=== PATIENT | male | born 1935 ===

== ENCOUNTER → 2017-02-14 | Day surgery (SDC) | payer MEDICARE, BC ==
[~2017-02-14] VITALS: Ht 175.3 cm; Wt 87.7 kg
[~2017-02-14] MED LIST: ATIVAN 0.5MG0.5 MG PO; CALCIUM CITRATE PO; CLARITIN10 MG PO; DECADRON4 MG PO; FLONASE 50 MCG/16 GM NOSE; K-TAB ER10 MEQ PO; KRILL OIL 1,001 EACH PO; LASIX40 MG PO; OCUVITE EYE +1 EACH PO; OCUVITE SOFTGE1 EACH PO; OMEGA-3 KRILL1 EAC1 PO; TAB-A-VITE1 EACH PO; THERA-VITE W/ B1 TAB PO; TYLENOL EXTRA500 MG PO; ZANTAC300 MG PO
--- NOTE | ~2017-02-14 | HP ---
PATIENT'S NAME: IMMANUEL ZEPEDA [facility] AGE: 81 Y [address] 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 An ultrasound study of the bladder was done and this showed a mass in the pelvis, which appeared to be pushing into the bladder wall; an extrinsic mass rather than a bladder mass. 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 His PSAs have all remained undetectable. He had previously been voiding without difficulty with a good stream. He has no previous history of urinary tract disease or infections. PAST MEDICAL HISTORY: Illnesses: Hypertension. Operations: Tonsillectomy, appendectomy, cholecystectomy. ALLERGIES: NONE KNOWN. PHYSICAL EXAMINATION: GENERAL: Well-developed, well-nourished male. CHEST: Clear. HEART: Normal sinus rhythm. ABDOMEN: Soft with no palpable masses. : Normal penis. Testicles are normal. Prostatic fossa is empty. RECTAL: Negative. IMPRESSION: Pelvic mass, etiology undetermined. PLAN: Cystoscopy, possible biopsy, and then CT scan. PATIENT'S NAME: IMMANUEL ZEPEDA [facility] AGE: 81 Y [address] ROOM: [place] [address] LOCATION: [facility] [place] ADMIT DATE: 02/14/2017 History & Physical DISCHARGE DATE: FAMILY PHYSICIAN: Zac Nelson MD ATTENDING PHYSICIAN: Yasmin Ac YASMIN AC MD EKL/modl /[id number] D: 235 T: 441 HISTORY & PHYSICAL
--- NOTE | ~2017-02-14 | OR ---
PATIENT'S NAME: IMMANUEL ZEPEDA [facility] AGE: 81 Y [address] ROOM: [place] [address] LOCATION: [facility] [place] ADMIT DATE: 02/14/2017 OR/Procedure Report DISCHARGE DATE: FAMILY PHYSICIAN: Zac Nelson MD ATTENDING PHYSICIAN: Yasmin Ac SURGEON: Yasmin Ac MD CENTRAL SERVICES TECH: DATE OF PROCEDURE: 02/14/2017 PREOPERATIVE DIAGNOSIS: Pelvic mass. POSTOPERATIVE DIAGNOSIS: Extrinsic bladder mass with displacement of lateral wall of the bladder. PROCEDURE PERFORMED: Cystoscopy. DESCRIPTION OF PROCEDURE: After adequate anesthesia, was prepped and draped. Cystoscope was passed. The anterior urethra was normal. External sphincter was normal. The prostate was absent, had a previous prostatectomy. Examination of the bladder revealed a normal trigone. The bladder mucosa was entirely normal. On the right lateral wall, there was a mass pushing into the bladder but the mucosa was entirely normal with no evidence of any intrinsic bladder lesion due to all extrinsic pushing into the bladder. Rectal exam revealed the prostatic fossa to be empty. I could not feel any pelvic masses on bimanual pelvic examination. He was then accompanied to recovery area. PLAN: He is scheduled for a CT scan and then probable biopsy. YASMIN AC MD EKL/modl /[id number] d: 02/14/17 0742 t: 02/15/17 0444, OPERATIVE SUMMARY
[2017-02-14 06:39] LABS: BASOPHIL # 0.1 K/uL (0.0-0.2); BASOPHIL % 0.6 %; EOSINOPHIL # 0.1 K/uL (0.0-0.5); HEMATOCRIT 43.8 % (37.0-53.0); HEMOGLOBIN 14.9 g/dL (11.0-16.0); IMMATURE GRANULOCYTE # 0.1 K/uL (0.0-0.3); IMMATURE GRANULOCYTE % 1.5 %; LYMPHOCYTE # 2.1 K/uL (0.8-4.0); LYMPHOCYTE % 24.1 %; MCH 31.5 pg (27.0-34.0); MCV 92.6 fl (83.0-98.0); MONOCYTE # 0.8 K/uL (0.0-1.0); MONOCYTE % 8.6 %; MPV 10.8 fl (9.4-12.4); NEUTROPHIL # (ANC) 5.6 K/uL (1.4-9.0); NEUTROPHIL % 64.2 %; NRBC % 0 /100WBC (0-0.00); PLATELET COUNT 148 K/uL (150-450); RBC 4.73 M/uL (3.50-5.50); WBC 8.8 K/uL (4.0-11.0)
[2017-02-14 06:54] LABS: ALBUMIN 3.2 gm/dL (3.5-5.0); ALK PHOS 84 IU/L (33-138); ALT 47 IU/L (12-78); ANION GAP 9.8 (10.0-19.0); AST 26 IU/L (10-40); BLOOD UREA NITROGEN 25 mg/dL (6-24); CHLORIDE 108 mMol/L (96-110); CO2 29 mMol/L (22-32); CREATININE 0.7 mg/dL (0.6-1.3); ESTIMATED GFR (MDRD EQUATION) > 60; POTASSIUM 3.8 mMol/L (3.7-5.1); SODIUM 143 mMol/L (135-145); TOTAL BILIRUBIN 0.6 mg/dL (0.0-1.5); TOTAL PROTEIN 6.2 g/dL (6.0-8.4)
[2017-02-14 07:51] LABS: COLOR URINE STRAW (YELLOW); TURBIDITY URINE CLEAR (CLEAR)
[2017-02-14 07:52] LABS: BILIRUBIN URINE NEGATIVE (NEGATIVE); GLUCOSE URINE NEGATIVE (NEGATIVE); KETONE URINE NEGATIVE (NEGATIVE); LEUKOCYTES URINE NEGATIVE /UL (NEGATIVE); NITRITE URINE NEGATIVE (NEGATIVE); PROTEIN URINE NEGATIVE (NEGATIVE); UROBILINOGEN URINE NORMAL (NORMAL)
[2017-02-14 07:53] LABS: BLOOD URINE NEGATIVE /UL (NEGATIVE)
== END | disposition disaster alternative care site (69) ==
LOC: GPOC 02-13 13:00 → GSDC 05:43
PROVIDERS: Urology
PROC: 0TJB8ZZ Inspection of Bladder, Via Natural or Artificial Opening Endoscopic (ICD-10-PCS; principal; 2017-02-14)
DX: N32.89 Other specified disorders of bladder (principal); I10 Essential (primary) hypertension; Z90.49 Acquired absence of other specified parts of digestive tract; Z90.79 Acquired absence of other genital organ(s); Z98.890 Other specified postprocedural states
CPT/HCPCS: J2001; J7030; Q9967

== ENCOUNTER → 2017-03-19 | Outpatient (CLI) | payer MEDICARE, BC ==
[~2017-03-19] VITALS: Ht 177.8 cm; Wt 87.0 kg
== END | disposition disaster alternative care site (69) ==
LOC: GPOC 08:28 → EDSTATUS 03-20 14:00
DX: Z01.818 Encounter for other preprocedural examination (principal); R94.31 Abnormal electrocardiogram [ECG] [EKG]

== ENCOUNTER → 2017-03-19 | Outpatient (CLI) | payer MEDICARE, BC ==
--- NOTE | ~2017-03-19 | ECHO ---
Transthoracic Echocardiography Report (TTE) Demographics Patient Name IMMANUEL ZEPEDA Date of Study 03/19/2017 Patient Number [id number] Visit Number [id number] Date of 1935 Room Number Accession Number [id number] Gender Male Age 82 year(s) Referring Carol Chang MD Eyeglass Frames Inspector Rasheed Sandoval RVT, Physician Osorio Brown MD Physician Interpreting Carol Chang MD Invoicing Machine Operator Physician Supervising Ordering Physician Carol Chang MD, MD/MLP Nurse Stress Cutter Inspector Conclusions Contractility Score Summary Normal Left Ventricular contractility was noted. Summary The estimated left ventricular ejection fraction is 60%. Moderate concentric left ventricular hypertrophy with a sigmoid septum measuring 2.31 cm. Diastolic assessment reveals Grade I diastolic dysfunction. Mild mid cavity obliteration due to the severity of the sigmoid septum and left ventricular hypertrophy. The left atrium is severely dilated. Mild mitral regurgitation by color Doppler. Mild mitral annular calcification. Borderline aortic stenosis with a peak velocity 2.41 m/s and a mean gradient 19 mmHg. There is moderate eccentric aortic regurgitation by color Doppler. There is a mild LVOT gradient that increases with valsalva. Procedure Type of Study TTE procedure:2D Echocardiogram. Procedure Date Date: 03/19/2017 Start: 08:06 AM Study Location: Echo Lab Technical Quality: Adequate visualization Indications:Pre surgical clearance and Shortness of breath. Appropriate Use Criteria: 8 Patient Status: Routine Rhythm: NSR HR: 72 bpm M-Mode/2D Measurements LV Diastolic Dimension: 3.87 cm LV Systolic Dimension: 2.3 cm LV Septum Diastolic: 2.2 cm LV PW Diastolic: 1.65 cm AO Root Dimension: 2.7 cm Cardiac Output: 8.23 l/min LA Dimension: 6.4 cm EF Estimated: 60 % LVOT: 2.2 cm LVOT VTI: 30.1 cm RV Base: 3.58 cm LV Stroke volume: 114.36 ml RV Length: 8.07 cm TAPSE: 2.64 cm TDI-S': 16 cm/s Doppler Measurements AV Peak Velocity: 2.41 m/s MV Peak E-Wave: 0.95 m/s AV Peak Gradient: 23.23 mmHg MV Peak A-Wave: 1.2 m/s AV Mean Gradient: 19 mmHg MV E/A Ratio: 0.8 LVOT Peak Velocity: 1.25 m/s MV P1/2t: 68 msec TR Gradient:19.89 mmHg PV Peak Velocity: 0.95 m/s Estimated RAP:5 mmHg PV Peak Gradient: 3.62 mmHg Estimated RVSP: 25 mmHg Estimated PASP: 24.89 mmHg E' Septal Velocity: 0.05 m/s A' Septal Velocity: 0.05 m/s E' Lateral Velocity: 0.05 m/s A' Lateral Velocity: 0.07 m/s Findings Left Ventricle Moderate concentric left ventricular hypertrophy with a sigmoid septum measuring 2.31 cm. Diastolic assessment reveals Grade I diastolic dysfunction. Mild mid cavity obliteration due to the severity of the sigmoid septum and left ventricular hypertrophy. Right Ventricle Mildly dilated right ventricle. Left Atrium The left atrium is severely dilated. Right Atrium Normal right atrial size. IVC measures 1.80 cm with inspiratory collapse. Mitral Valve Mild-moderate mitral regurgitation by color Doppler. Mild mitral annular calcification. Aortic Valve Mild to moderate aortic stenosis with a peak velocity 2.41 m/s and a mean gradient 19 mmHg. There is moderate eccentric aortic regurgitation by color Doppler. There is a mild LVOT gradient that increases with valsalva. Tricuspid Valve Normal tricuspid valve structure and function. Trivial tricuspid regurgitation by color Doppler. Pulmonic Valve Normal pulmonic valve structure and function. Pericardial Effusion Trivial posterior pericardial effusion. Miscellaneous Visualized portions of the aortic root and ascending aorta appear normal in size. Pleural Effusion No evidence of pleural effusion. Contractility Score LV regional wall motion:(0-Non visualized 1-Normal 2-Hypokinesis 3-Akinesis 4-Dyskinesis 5-Aneurysm) Signature dtt: Bernardo Medina (cardio) dtd: 03/19/17 0806 Physician Self Edit
== END | disposition disaster alternative care site (69) ==
LOC: GCAR 07:46
DX: Z01.818 Encounter for other preprocedural examination (principal); I51.7 Cardiomegaly; I25.3 Aneurysm of heart; I34.0 Nonrheumatic mitral (valve) insufficiency; I35.2 Nonrheumatic aortic (valve) stenosis with insufficiency; R06.02 Shortness of breath

== ENCOUNTER 2017-03-20 06:56 | Emergency (ER) | payer MEDICARE, BC ==
--- NOTE | ~2017-03-20 | ER ---
PATIENT'S NAME: IMMANUEL ZEPEDA [facility] AGE: 82 Y [address] ROOM: [place] [id number] LOCATION: [facility] ADMIT DATE: 03/20/2017 ER/Outpatient Report DISCHARGE DATE: 03/20/2017 FAMILY PHYSICIAN: Zac Nelson MD ATTENDING PHYSICIAN: Veronica Shi TIME OF ARRIVAL: 06:56. TIME SEEN: 06:56. IDENTIFICATION: An 82-year-old male. CHIEF COMPLAINT: Weakness. HISTORY OF PRESENT ILLNESS: The patient is an 82-year-old male, who was scheduled for a stress test today with Dr. Medina. He and his are from [place], [place], and they were staying at the [facility]. The patient has had some balance issues of late, and had a fall about 3 hours ago with no injury. He was lift assisted by paramedics back to his chair. This morning, his said with his weakness, she was uncomfortable having him use his walker to get out to the car, and they really just wanted assistance in a wheelchair right over to the hospital. There was some question of whether or not he was confused. He is not confused. He has no complaints. They really do just want to go for the stress testing. I reviewed his history. ALLERGIES: NO ALLERGIES. CURRENT MEDICATIONS: As listed on his home medication list. MEDICAL PROBLEMS: History of prostate cancer, now with a pelvic mass, scheduled for surgery with Dr. Ac, but getting the stress test today for some exertional dyspnea. He has mild aortic stenosis and a history of schwannoma, which has been followed by a neurosurgeon in [place]. He has balance issues secondary to that schwannoma. 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 He is . PATIENT'S NAME: IMMANUEL ZEPEDA [facility] AGE: 82 Y [address] ROOM: [place], [place] [address] LOCATION: [facility] ADMIT DATE: 03/20/2017 ER/Outpatient Report DISCHARGE DATE: 03/20/2017 FAMILY PHYSICIAN: Zac Nelson MD ATTENDING PHYSICIAN: Veronica Shi He is a former smoker. Alcohol, occasional. REVIEW OF SYSTEMS: All systems were reviewed. He really has no complaints, and they really have no interest in being seen here in the Emergency Room. PHYSICAL EXAMINATION: VITAL SIGNS: Per the Nursing record. LUNGS: Clear to auscultation. HEART: Regular rate and rhythm. ABDOMEN: Soft. SKIN: Angels, warm, and dry. NEUROLOGICAL: The patient is alert and oriented x4. No focal deficit. He does have some balance issues with standing, and required some assistance. He has generalized weakness, but no focal deficit. I did contact Dr. Ac who knows the family well, who recommended that he just be taken over for his stress test. IMPRESSION: 1. Weakness, nothing acute. 2. Exertional dyspnea, scheduled for a stress test today. 3. Pelvic mass, already scheduled for surgery with Dr. Ac. PLAN: The patient was taken by transport over to [facility] for his scheduled stress testing per Dr. Bernardo Medina. This patient will have no charge for an ER visit as they were not intending to come through the Emergency Room, and just intending to have a wheelchair ride to go to his stress testing. He has been otherwise unchanged and we will proceed with that plan. MD RACQUEL MEEKS/susanna /[id number] d: 03/21/17 0040 t: 04/01/17 0833, OUTPATIENT REPORT
== END 2017-03-20 07:16 | disposition disaster alternative care site (69) ==
LOC: GMED 06:56
DX: R53.1 Weakness (principal); R06.00 Dyspnea, unspecified; R19.00 Intra-abdominal and pelvic swelling, mass and lump, unspecified site; Z79.899 Other long term (current) drug therapy; Z85.46 Personal history of malignant neoplasm of prostate; W19.XXXA Unspecified fall, initial encounter

== ENCOUNTER → 2017-03-20 | Emergency (ER) | payer MEDICARE, BC | LOC: GAMB 06:41 | DX: C80.1 Malignant (primary) neoplasm, unspecified (principal) ==

== ENCOUNTER → 2017-03-20 | Outpatient (CLI) | payer MEDICARE, BC ==
--- NOTE | ~2017-03-20 | ESTC ---
Cardiac Perfusion Imaging Demographics Patient Name KATELYN Olsen Gender Male Patient Number [id number] Race Visit Number [id number] Ethnicity or Corporate ID Room Number Accession Number [id number] Height 70 inches Date of 1935 Weight 194 pounds Interpreting Carol Chang MD Date of study 03/20/2017 Physician Supervising /EZEQUIEL Otto APRN NM Technologist Catherine Chen Ordering Physician Carol Chang MD Stress electromedical equipment technician Stress ECG Reading Jose Otto APRN Nurse Casimiro Ahn Physician Medications Reviewed with Patient prior to Procedure. Procedure Procedure Type: Nuclear Stress Test:Pharmacological, Lexiscan, Cardiolite Stress Test Procedure Start time: 03/20/2017 09:25 Indications: Pre surgical clearance. Risk Factors The patient risk factors include:prior PCI;obesity, physical activity, hypercholesterolemia, hypertension, family history of premature CAD and dyslipidemia. Conclusions Summary Cardiolite SPECT images demonstrate homogenous uptake of radioactive tracer. NO evidence of ischemia and no evidence of prior infarct. TID is at the upper limits of normal Gated images demonstrate normal left ventricular systolic function without evidence of inducible wall motion abnormalities. LVEF is reported at 45% suspect secondary to underlying ectopic beats. Stress Protocols Resting ECG Sinus rhythm with occasional PVC's Pre-stress physical exam: Patient assessed by Ahsley [facility] prior to testing. Chest - CTA Cardio - IIRR, I/ Systolic Murmur Predicted HR: 140 bpm HR response: Appropriate BP response: Appropriate Reason for termination:Infusion complete ECG Findings No ECG changes suggestive of ischemia. Arrhythmias No worsening rhythm abnormality. Symptoms Shortness of breath. Complications Procedure complication: None. Stress Interpretation Appropriate hemodynamic response to Lexiscan. No significant ST-T wave changes with Lexiscan. ECG portion is negative for ischemia by diagnostic criteria. Will correlate with nuclear images. Imaging Results Summed scores - Summed stress score: 9 - Summed rest score: 14 - Summed difference score: -5 Stress ejection Ejection fraction:45 % EDV :98 ml ESV :54 ml Stroke volume :44 ml LV mass :126 gr Imaging Protocols Rest Stress Isotope:Tc99m Sestamibi IV Isotope: Tc99m Sestamibi IV Isotope dose:14.1 mCi Isotope dose:44.8 mCi Date:03/20/2017 07:51 Date:03/20/2017 09:55 Technique: SPECT Technique: Gated Supine SPECT Supine Scan Time:45-60 minutes post Scan Time:45-60 minutes post injection injection Procedure Medications - Regadenoson (Lexiscan) 0.4 mg IV over 10-15 sec. I.V. 0.4 mg. Medications administered per verbal order and read back to physician prior to administration. Medical History Admission Data Admission date: 03/20/2017 Admission Time: 07:16 Hospital Status: Outpatient. Signatures dtt: Bernardo Medina (cardio) dtd: 03/20/17 0925 Physician Self Edit
== END | disposition disaster alternative care site (69) ==
LOC: GRAD 07:15
DX: R06.02 Shortness of breath (principal); E66.9 Obesity, unspecified; E78.00 Pure hypercholesterolemia, unspecified; I10 Essential (primary) hypertension; Z98.61 Coronary angioplasty status
CPT/HCPCS: A9500; J2785

== ENCOUNTER → 2017-03-21 | Outpatient (CLI) | payer MEDICARE, BC ==
[2017-03-21 07:45] LABS: ALBUMIN 3.1 gm/dL (3.5-5.0); ANION GAP 8.1 (10.0-19.0); BLOOD UREA NITROGEN 22 mg/dL (6-24); CALCIUM 8.6 mg/dL (8.5-10.5); CHLORIDE 103 mMol/L (96-110); CO2 33 mMol/L (22-32); CREATININE 0.9 mg/dL (0.6-1.3); ESTIMATED GFR (MDRD EQUATION) > 60; MAGNESIUM 2.2 mg/dL (1.8-2.6); PHOSPHORUS 2.2 mg/dL (2.5-4.9); POTASSIUM 3.1 mMol/L (3.7-5.1); SODIUM 141 mMol/L (135-145)
== END | disposition disaster alternative care site (69) ==
LOC: LCNC 07:14
PROVIDERS: Internal Medicine Interventional Cardiology
DX: R07.9 Chest pain, unspecified (principal)